=== PATIENT | female | born 1995 | race Caucasian/White ===

== ENCOUNTER 2017-06-18 07:17 | Emergency (ER) | payer BC ==
--- NOTE | 2017-06-18 07:36 | EDM.PDOC ---
ED HPI GENERAL MEDICAL PROBLEM - General Chief Complaint: Fever Stated Complaint: FEVER/COUGH Time Seen by Provider: 06/18/17 07:34 Source of Information: Reports: Patient, Family (mother) History Limitations: Reports: No Limitations - History of Present Illness INITIAL COMMENTS - FREE TEXT/NARRATIVE: 22-year-old female presents to the ED with a four-day history of fever chills bodyache and severe paroxysmal cough. Poor appetite. Symptoms are compatible with influenza. She was seen by the school nurse 2 days ago and had a negative strep screen and a negative Monospot carried out. She states the coughing is the worst and she can't stop and coughs all night long. Fever up to 103. Onset: Sudden Onset Date: 06/15/17 Duration: Day(s): Location: Reports: Chest (Paroxysmal cough for headache and body ache.), Generalized, Other (Generalized myalgia anorexia) Quality: Reports: Ache, Other (All over. Severe paroxysmal cough) Severity: Moderate Improves with: Reports: None (To severe.) Worsens with: Reports: None Context: Reports: Sick Contact (Plays on a basketball team for [employer] Denies: Activity, Exercise, Lifting, Trauma, Other Associated Symptoms: Reports: Chest Pain, Cough (From coughing so much), Fever/ Chills, Headaches, Loss of Appetite, Malaise ( severe paroxysmal cough minimally productive.), Weakness (Generalized). Denies: Confusion, Diaphoresis , Nausea/Vomiting, Rash, Seizure, Shortness of Breath, Syncope Treatments [employer]PERATOR: Reports: Other (see below) (She's been using [id number] DayQuil.) Throat Pain Score (Numeric/FACES): 2 - Related Data Allergies Allergy/AdvReac Type Severity Reaction Status Date / Time No Known Allergies Allergy Verified 06/18/17 07:29 Home Meds: Home Meds Control. 1 tab PO DAILY 06/18/17 [History] Chlorpheniramine/HYDROcodone [Tussionex Pennkinetic] 5 ml PO Q12H #60 ml [Rx] Oseltamivir [Tamiflu] 75 mg PO BID #10 cap 06/18/17 [Rx] Social & Family History - Living Situation & Occupation Living situation: Reports: Single Occupation: Student ED ROS GENERAL - Review of Systems Review Of Systems: See Below Constitutional: Reports: No Symptoms HEENT: Reports: No Symptoms Respiratory: Reports: No Symptoms Cardiovascular: Reports: No Symptoms Endocrine: Reports: No Symptoms GI/Abdominal: Reports: No Symptoms : Reports: No Symptoms Musculoskeletal: Reports: No Symptoms Skin: Reports: No Symptoms Neurological: Reports: No Symptoms Psychiatric: Reports: No Symptoms Hematologic/Lymphatic: Reports: No Symptoms Immunologic: Reports: No Symptoms ED EXAM, GENERAL - Physical Exam Exam: See Below Exam Limited By: No Limitations General Appearance: Alert, WD/WN, Other (Very warm to palpation.) Eye Exam: Bilateral Eye: Normal Inspection Ears: Normal TMs Throat/Mouth: Normal Inspection, Normal Lips, Normal Teeth, Normal Oropharynx, Other Head: Atraumatic, Normocephalic (Lips are mildly dry) Neck: Normal Inspection, Supple, Non-Tender, Full Range of Motion. No: Lymphadenopathy (L), Lymphadenopathy (R) Respiratory/Chest: No Respiratory Distress, Lungs Clear, Normal Breath Sounds, Other (Harsh paroxysmal nonproductive cough noted) Cardiovascular: Normal Peripheral Pulses, Regular Rate, Rhythm (Resting heart rate 1 18/m presumably due to fever.), No Edema, No Gallop, No Murmur, Tachycardia Peripheral Pulses: 2+: Posterior Tibial (L), Posterior Tibial (R), Dorsalis Pedis (L), Dorsalis Pedis (R) GI/Abdominal: Normal Bowel Sounds, Soft, Non-Tender, No Organomegaly, No Abnormal Bruit, No Mass, Pelvis Stable Back Exam: Normal Inspection, Full Range of Motion. No: CVA Tenderness (L), CVA Tenderness (R) Extremities: Normal Inspection, Normal Range of Motion, Non-Tender, No Pedal Edema Neurological: Alert, Oriented, CN II-XII Intact, Normal Cognition, Normal Gait Psychiatric: Normal Affect, Normal Mood Skin Exam: Warm, Dry, Intact, Normal Color, No Rash Course - Vital Signs Last Recorded V/S: Last Vital Signs Temp 38.1 C 06/18/17 07:58 Pulse 118 H 06/18/17 07:26 Resp 16 06/18/17 07:26 BP 134/91 H 06/18/17 07:26 Pulse Ox 96 06/18/17 07:26 - Orders/Labs/Meds Meds: Medications Discontinued Medications Generic Name Dose Route Start Last Admin Trade Name Freq PRN Reason Stop Dose Admin Ibuprofen 600 mg 06/18/17 07:54 06/18/17 07:58 Motrin PO 06/18/17 07:55 600 mg ONETIME ONE Administration - Radiology Interpretation Free Text/Narrative:: 22-year-old female currently going to college here in [place] presents with a 3 to four-day history of fever chills and paroxysmal cough with moderate headache and loss of appetite. Symptoms are compatible with influenza. Lungs are clear oropharynx and ears are normal. Plan influenza screen to be done. Given Motrin 600 mg per ora now for fever relief. - Re-Assessments/Exams Free Text/Narrative Re-Assessment/Exam: 06/18/17 08:26 Patient is positive for influenza type a virus. She will be placed on Tamiflu 75 mg twice a day for 5 days not so much to slow down her illness but to try and prevent her from being contagious to others that she lives in a college campus. She will continue use Motrin 6 mg every 6 hours for pain body ache and fever relief. Tussionex cough syrup 5 mils by mouth every 12 hours necessary for cough relief. Departure - Departure Time of Disposition: 08:33 Disposition: Home, Self-Care 01 Condition: Fair Clinical Impression: Influenza A - Discharge Information Prescriptions: Chlorpheniramine/HYDROcodone [Tussionex Pennkinetic] 5 ml PO Q12H #60 ml Oseltamivir [Tamiflu] 75 mg PO BID #10 cap Referrals: PCP,None [Ordering Only Provider] - Forms: ED Department Discharge, ED Return to Work/School Form Additional Instructions: Evaluation in the emergency room this morning in regards to high fever headache generalized myalgia and paroxysmal cough for 3-4 days. The symptoms are compatible with influenza infection which is running rampant through our community at present. You tested positive for influenza type a virus infection. Treatment is fever relief with Motrin 600 mg every 6 hours as needed which will relieve headache and body ache as well. Start antiviral medication Tamiflu 75 mg twice daily for the next 5 days today. Appears to break the influenza virus infection and make it less contagious to others. You are considered contagious to disrupt a week after the start of symptoms. Suggest staying out of school for at least Thursday or Thursday next week. May use Tussionex cough syrup for 5 mils every 12 hours as necessary for cough relief. Takes a good hour to work so plan on taking a good hour before bedtime.
[2017-06-18] MEDS ORDERED: Ibuprofen 600 MG Tab PO ONE (07:54)
== END 2017-06-18 08:43 | disposition home or self-care (01) ==
LOC: JD.ED 07:17
DX: J10.1 Influenza due to other identified influenza virus with other respiratory manifestations (principal); Z79.899 Other long term (current) drug therapy
CPT/HCPCS: 87804; 99283; A9270

== ENCOUNTER 2019-02-03 07:05 | Emergency (ER) | payer BC ==
--- NOTE | 2019-02-03 07:54 | EDM.PDOC ---
ED HPI GENERAL MEDICAL PROBLEM - General Chief Complaint: General Stated Complaint: FEVER,COUGH ANDF NAUSEA Time Seen by Provider: 02/03/19 07:30 Source of Information: Reports: Patient History Limitations: Reports: No Limitations - History of Present Illness INITIAL COMMENTS - FREE TEXT/NARRATIVE: The patient presents with a cough, congestion, sore throat, chills and fever. This has been going on for a few days. She has some nausea with it. She has no chest pain, shortness of breath or abdominal pain. 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 Onset: Gradual Duration: Day(s): Location: Reports: Other (Throat) Quality: Reports: Sharp Severity: Mild Improves with: Reports: None Worsens with: Reports: None Associated Symptoms: Reports: Cough, Fever/Chills, Nausea/Vomiting. Denies: Chest Pain, Headaches, Shortness of Breath Throat Pain Score (Numeric/FACES): 3 - Related Data Allergies Allergy/AdvReac Type Severity Reaction Status Date / Time No Known Allergies Allergy Verified 06/18/17 07:29 Home Meds: Home Meds Control. 1 tab PO DAILY 06/18/17 [History] Chlorpheniramine/HYDROcodone [Tussionex Pennkinetic] 5 ml PO Q12H #60 ml [Rx] Oseltamivir [Tamiflu] 75 mg PO BID #10 cap 06/18/17 [Rx] Past Medical History - Past Health History Medical/Surgical History: Denies Medical/Surgical History - Past Surgical History HEENT Surgical History: Reports: Oral Surgery Social & Family History - Family History Family Medical History: Noncontributory - Tobacco Use Smoking Status *Q: Never Smoker - Caffeine Use Caffeine Use: Reports: None - Recreational Drug Use Recreational Drug Use: No - Living Situation & Occupation Living situation: Reports: Single Occupation: Student ED ROS GENERAL - Review of Systems Review Of Systems: See Below Constitutional: Reports: Fever, Chills HEENT: Reports: Throat Pain Respiratory: Reports: Cough. Denies: Shortness of Breath Cardiovascular: Reports: No Symptoms Endocrine: Reports: No Symptoms GI/Abdominal: Reports: Nausea. Denies: Abdominal Pain, Vomiting : Reports: No Symptoms Musculoskeletal: Reports: No Symptoms ED EXAM, GENERAL - Physical Exam Exam: See Below Exam Limited By: No Limitations General Appearance: Alert, No Apparent Distress Ears: Normal External Exam, Normal Canal, Normal TMs Nose: Normal Inspection Throat/Mouth: Other (Mild pharyngeal erythema) Head: Atraumatic, Normocephalic Neck: Normal Inspection, Supple, Non-Tender Respiratory/Chest: No Respiratory Distress, Lungs Clear, Normal Breath Sounds Cardiovascular: Regular Rate, Rhythm, No Edema, No Murmur GI/Abdominal: Soft, Non-Tender, No Organomegaly, No Mass Extremities: Normal Inspection Neurological: Alert, Oriented, No Motor/Sensory Deficits Course - Vital Signs Last Recorded V/S: Last Vital Signs Temp 98.8 F 02/03/19 07:26 Pulse 99 02/03/19 07:26 Resp 16 02/03/19 07:26 BP 140/92 H 02/03/19 07:26 Pulse Ox 100 02/03/19 07:26 - Re-Assessments/Exams Free Text/Narrative Re-Assessment/Exam: 02/03/19 07:53 I have ordered an influenza swab. 02/03/19 08:11 The influenza is negative. She has a viral URI. I will discharge her home. Departure - Departure Time of Disposition: 08:15 Disposition: Home, Self-Care 01 Condition: Good Clinical Impression: Viral URI - Discharge Information *PRESCRIPTION DRUG MONITORING PROGRAM REVIEWED*: No *COPY OF PRESCRIPTION DRUG MONITORING REPORT IN PATIENT QUE: No Referrals: PCP,None [Primary Care Provider] - Forms: ED Department Discharge, ED Return to Work/School Form Additional Instructions: Drink plenty of fluids. Take motrin or tylenol for any fever. You can try over the counter cold preparations such as mucinex and nyquill. Please return if you are worse.
== END 2019-02-03 08:18 | disposition home or self-care (01) ==
LOC: JD.ED 07:05
DX: J06.9 Acute upper respiratory infection, unspecified (principal)
CPT/HCPCS: 87804; 99281; 99283

== ENCOUNTER 2019-04-30 19:52 | Emergency (ER) | payer BC ==
--- NOTE | 2019-04-30 20:01 | EDM.PDOC ---
ED HPI GENERAL MEDICAL PROBLEM - General Chief Complaint: Upper Extremity Injury/Pain Stated Complaint: INJURED PINKY FINGER ON RIGHT HAND Time Seen by Provider: 04/30/19 20:00 Source of Information: Reports: Patient History Limitations: Reports: No Limitations - History of Present Illness INITIAL COMMENTS - FREE TEXT/NARRATIVE: 23-year-old female presents the ED for evaluation of acute injury to her left fifth finger. She states she jammed it while playing basketball and was struck by the basketball directly on the end of her right fifth finger. Of note she is right-hand dominant. Patient is unable to flex or extend the distal aspect of her finger and has obvious deformity at the DIP joint. She denies any other injuries. She denies any possibility of . Onset: Today Onset Date: 04/30/19 Onset Time: 19:35 Duration: Minutes: Location: Reports: Upper Extremity, Right (Injury to the right fifth finger) Quality: Reports: Ache, Throbbing Severity: Moderate Improves with: Reports: Rest Worsens with: Reports: Movement Context: Reports: Exercise (Jammed up the right fifth finger playing basketball. ). Denies: Activity Associated Symptoms: Reports: No Other Symptoms Treatments CONFIGURATOR: Reports: Other (see below) (None.) - Related Data Allergies Allergy/AdvReac Type Severity Reaction Status Date / Time No Known Allergies Allergy Verified 06/18/17 07:29 Home Meds: Home Meds . [No Known Home Meds] 02/03/19 [History] Past Medical History - Past Health History Medical/Surgical History: Denies Medical/Surgical History - Past Surgical History HEENT Surgical History: Reports: Oral Surgery Social & Family History - Family History Family Medical History: Noncontributory - Caffeine Use Caffeine Use: Reports: None - Living Situation & Occupation Living situation: Reports: Single Occupation: Student Review of Systems - Review of Systems Review Of Systems: See Below Constitutional: Reports: No Symptoms Eyes: Reports: No Symptoms Ears: Reports: No Symptoms Nose: Reports: No Symptoms Mouth/Throat: Reports: No Symptoms Respiratory: Reports: No Symptoms Cardiovascular: Reports: No Symptoms GI/Abdominal: Reports: No Symptoms Genitourinary: Reports: No Symptoms Musculoskeletal: Reports: No Symptoms Skin: Reports: No Symptoms Neurological: Reports: No Symptoms Psychiatric: Reports: No Symptoms ED EXAM, GENERAL - Physical Exam Exam: See Below Exam Limited By: No Limitations General Appearance: Alert, WD/WN, No Apparent Distress, Other (Vital signs are stable.) Extremities: Other (Termination was limited to the right hand. She has an acute injury to the distal aspect of her right fifth digit with an obvious anterior dislocation of the distal phalanx on the middle phalanx. Unable to flex or extend the distal aspect of the finger. There is mild associated swelling at the DIP joint.) Neurological: Alert, Oriented, CN II-XII Intact, Normal Cognition Psychiatric: Normal Affect, Normal Mood Skin Exam: Warm, Dry, Intact, Normal Color, No Rash ED TRAUMA EXTREMITY PROCEDURES - Joint Reduction Site: Finger (R) (Dislocation at the DIP joint anteriorly of the right fifth finger) Sedation: Other Pre-Procedure NV Status: Normal Post-Procedure NV Status: Normal Technique: Traction/Counter Traction (Manual traction) Number of Attempts: 1 Post-Reduction Imaging: Completely Reduced, No Fracture Seen Joint Reduction Complications: No Course - Vital Signs Last Recorded V/S: Last Vital Signs Temp 36.6 C 04/30/19 20:13 Pulse 108 H 04/30/19 20:13 Resp 20 04/30/19 20:13 BP 144/112 H 04/30/19 20:13 Pulse Ox 100 04/30/19 20:13 - Orders/Labs/Meds Orders: Active Orders 24 hr Category Date Time Status Fingers Fifth Digit Rt F9 [CR] Stat Exams 04/30/19 20:11 Ordered Fingers Fifth Digit Rt F9 [CR] Stat Exams 04/30/19 20:31 Ordered Meds: Medications Discontinued Medications Generic Name Dose Route Start Last Admin Trade Name Freq PRN Reason Stop Dose Admin Ibuprofen 600 mg 04/30/19 20:33 04/30/19 20:39 Motrin PO 04/30/19 20:34 600 mg ONETIME ONE Administration - Radiology Interpretation Free Text/Narrative:: 23-year-old female presents to the ED with an acute injury to the distal aspect of her right fifth finger playing basketball. She believes the basket struck her right on the end of the finger. Examination shows an anterior dislocation or volar dislocation of the distal phalanx on the middle phalanx. Plan x-rays to be obtained. X-rays will be repeated once reduction is completed - Re-Assessments/Exams Free Text/Narrative Re-Assessment/Exam: 04/30/19 20:30 x-ray of the right fifth finger confirms dislocation of the DIP joint. the dislocation was easily reduced with manual traction. 04/30/19 20:32 Post reduction films reveal return to anatomical position. No fractures identified. Plan: Power tape the 5th to the 4th finger for the next two weeks. Motrin 600mg every 6hrs as need for pain relief. Departure - Departure Time of Disposition: 20:38 Disposition: Home, Self-Care 01 Condition: Fair Clinical Impression: Closed dislocation of phalanx of hand Qualifiers: Encounter type: initial encounter Qualified Code(s): S63.259A - Unspecified dislocation of unspecified finger, initial encounter - Discharge Information *PRESCRIPTION DRUG MONITORING PROGRAM REVIEWED*: Not Applicable *COPY OF PRESCRIPTION DRUG MONITORING REPORT IN PATIENT QUE: Not Applicable Referrals: PCP,None [Primary Care Provider] - Forms: ED Department Discharge Additional Instructions: Evaluation the emergency room tonight in regards to acute injury to the right fifth distal finger while playing basketball. There is an obvious dislocation of the distal phalanx on the middle phalanx volarly or towards the palmar aspect of your hand. X-rays revealed the dislocation but no fractures were identified. The dislocation was easily reduced in the emergency department and postreduction x-rays reveal no fractures. There will be torn ligaments of the joint at the DIP joint. Treatment is to power tape the right fifth and fourth finger together for the next 2 weeks. After this may start to regain range of motion. Back swelling of the joint for up to 3 months before returning to normal shape and size. Faint vascular after 2 weeks then power tape or tape the joint aggressively with tape to prevent hyperflexion injury again in the near future. Motrin 600 mg every 6 hours to reduce pain and inflammation. Plan ice to the area one half hour out of every 4 hours today and tomorrow to reduce swelling. Sepsis Event Note - Focused Exam Vital Signs: Vital Signs Temp Pulse Resp BP Pulse Ox 04/30/19 20:13 36.6 C 108 H 20 144/112 H 100 Date Exam was Performed: 04/30/19 Time Exam was Performed: 20:41 - My Orders Last 24 Hours: My Active Orders 04/30/19 20:11 Fingers Fifth Digit Rt F9 [CR] Stat 04/30/19 20:31 Fingers Fifth Digit Rt F9 [CR] Stat - Assessment/Plan Last 24 Hours: My Active Orders 04/30/19 20:11 Fingers Fifth Digit Rt F9 [CR] Stat 04/30/19 20:31 Fingers Fifth Digit Rt F9 [CR] Stat
[2019-04-30] MEDS ORDERED: Ibuprofen 600 MG Tab PO ONE (20:33)
--- NOTE | 2019-05-02 07:12 | CR ---
Right fifth finger: Two views of the right fifth finger were obtained. Comparison: No previous study. Partial dislocation is identified within the DIP joint on one view which disappears on the second view. No fracture or other abnormality is seen. Impression: 1. Dislocation as noted above. Diagnostic code #2 This report was dictated in [place] Standard Time
== END 2019-04-30 20:45 | disposition home or self-care (01) ==
LOC: JD.ED 19:52
DX: S63.296A Dislocation of distal interphalangeal joint of right little finger, initial encounter (principal); W21.05XA Struck by basketball, initial encounter; Y93.67 Activity, basketball
CPT/HCPCS: 26770; 73140; 99283; A9270; 26670; 99282

== ENCOUNTER 2020-03-11 19:50 | Emergency (ER) | payer BC ==
[2020-03-11] MEDS ORDERED: Ketorolac 60 MG/2 ML SDV IM ONE ×2 (20:57→21:45)
[2020-03-11] MEDS ORDERED: Acetaminophen 325 MG Tab PO ONE (20:59)
--- NOTE | 2020-03-11 21:50 | EDM.PDOC ---
ED HPI GENERAL MEDICAL PROBLEM - General Chief Complaint: Back Pain or Injury Stated Complaint: LOW BACK PAIN Time Seen by Provider: 03/11/20 19:58 Source of Information: Reports: Patient, RN Notes Reviewed History Limitations: Reports: No Limitations - History of Present Illness INITIAL COMMENTS - FREE TEXT/NARRATIVE: Patient is a 24-year-old female presenting to the emergency department with complaints of generalized low back pain. Symptoms started this morning. She has had no falls or known injuries. Denies any heavy lifting. She recently drove back from [place] today. States she had difficulty sitting for the drive which was about 3 and half hours. She verbalized that she is undergoing work-up for high blood pressure. She had been home in [place] to have some ultrasounds and other tests done on her kidneys to look at them as a possible cause for high blood pressure. She has not taken anything for pain. She denies any urinary frequency or dysuria. Treatments FLAGGER: Reports: Other (see below) Other Treatments FLAGGER: none Lower Back Pain Score (Numeric/FACES): 8 - Related Data Allergies Allergy/AdvReac Type Severity Reaction Status Date / Time No Known Allergies Allergy Verified 06/18/17 07:29 Home Meds: Home Meds Naproxen [Naprosyn] 500 mg PO Q12HR 5 Days #10 tab 03/11/20 [Rx] Spironolactone [Aldactone] 25 mg PO DAILY 03/11/20 [History] amLODIPine [Norvasc] 5 mg PO DAILY 03/11/20 [History] Past Medical History - Past Health History Medical/Surgical History: Denies Medical/Surgical History Cardiovascular History: Reports: Hypertension - Past Surgical History HEENT Surgical History: Reports: Oral Surgery Social & Family History - Family History Family Medical History: Noncontributory - Tobacco Use Tobacco Use Status *Q: Never Tobacco User - Caffeine Use Caffeine Use: Reports: Coffee - Recreational Drug Use Recreational Drug Use: No - Living Situation & Occupation Living situation: Reports: Single Occupation: Student ED ROS GENERAL - Review of Systems Review Of Systems: Comprehensive ROS is negative, except as noted in HPI. ED EXAM,LOWER BACK PAIN/INJURY - Physical Exam Exam: See Below General Appearance: Alert, WD/WN, No Apparent Distress Respiratory/Chest: No Respiratory Distress, Lungs Clear, Normal Breath Sounds, No Accessory Muscle Use, Chest Non-Tender Cardiovascular: Normal Peripheral Pulses, Regular Rate, Rhythm, No Edema, No Gallop, No JVD, No Murmur, No Rub GI/Abdominal: Normal Bowel Sounds, Soft, Non-Tender, No Organomegaly, No Distention, No Abnormal Bruit, No Mass Back Exam: Normal Inspection, Full Range of Motion, Paraspinal Tenderness (Mild bilateral low and mid back.). No: Vertebral Tenderness Neurological: Alert, Normal Mood/Affect, Normal Dorsiflexion, CN II-XII Intact, Normal Plantar Flexion, Normal Gait, Normal Reflexes, No Motor/Sensory Deficits, Oriented x 3 Psychiatric: Normal Affect, Normal Mood Skin Exam: Warm, Dry, Intact, Normal Color, No Rash Course - Vital Signs Last Recorded V/S: Last Vital Signs Temp 100.9 F H 03/11/20 20:04 Pulse 112 H 03/11/20 20:04 Resp 20 03/11/20 20:04 BP 138/96 H 03/11/20 20:04 Pulse Ox 97 03/11/20 20:04 - Orders/Labs/Meds Orders: Active Orders 24 hr Category Date Time Status Lumbar Spine 2 or 3V [CR] Stat Exams 03/11/20 20:56 Taken Labs: Laboratory Tests 03/11/20 03/11/20 03/11/20 Range/Units 20:35 21:10 21:10 WBC 5.67 (3.98-10.04) K/mm3 RBC 4.76 (3.98-5.22) M/mm3 Hgb 14.1 (11.2-15.7) gm/dl Hct 41.1 (34.1-44.9) % MCV 86.3 (79.4-94.8) fl MCH 29.6 (25.6-32.2) pg MCHC 34.3 (32.2-35.5) g/dl RDW Std Deviation 37.2 (36.4-46.3) fL Plt Count 320 (182-369) K/mm3 MPV 9.8 (9.4-12.3) fl Neut % (Auto) 70.1 (34.0-71.1) % Lymph % (Auto) 11.3 L (19.3-51.7) % [place] % (Auto) 17.1 H (4.7-12.5) % Eos % (Auto) 0.4 L (0.7-5.8) Baso % (Auto) 1.1 (0.1-1.2) % Neut # (Auto) 3.98 (1.56-6.13) K/mm3 Lymph # (Auto) 0.64 L (1.18-3.74) K/mm3 [place] # (Auto) 0.97 H (0.24-0.36) K/mm3 Eos # (Auto) 0.02 L (0.04-0.36) K/mm3 Baso # (Auto) 0.06 (0.01-0.08) K/mm3 Sodium 136 (136-145) mEq/L Potassium 3.6 (3.5-5.1) mEq/L Chloride 100 (98-107) mEq/L Carbon Dioxide 21 (21-32) mEq/L Anion Gap 18.6 H (5-15) BUN 11 (7-18) mg/dL Creatinine 1.0 (0.55-1.02) mg/dL Est Cr Clr Drug Dosing 85.30 mL/min Estimated GFR (MDRD) > 60 (>60) mL/min BUN/Creatinine Ratio 11.0 L (14-18) Glucose 93 (74-106) mg/dL Calcium 9.5 (8.5-10.1) mg/dL Total Bilirubin 0.4 (0.2-1.0) mg/dL AST 17 (15-37) U/L ALT 21 (14-59) U/L Alkaline Phosphatase 77 (46-116) U/L Total Protein 8.4 H (6.4-8.2) g/dl Albumin 4.4 (3.4-5.0) g/dl Globulin 4.0 gm/dL Albumin/Globulin Ratio 1.1 (1-2) Urine Color Yellow (Yellow) Urine Appearance Clear (Clear) Urine pH 6.0 (5.0-8.0) Ur Specific [place] > or = 1.030 (1.005-1.030) Urine Protein Trace H (Negative) Urine Glucose (UA) Negative (Negative) Urine Ketones 1+ H (Negative) Urine Occult Blood Negative (Negative) Urine Nitrite Negative (Negative) Urine Bilirubin Negative (Negative) Urine Urobilinogen 0.2 (0.2-1.0) Ur Leukocyte Esterase Negative (Negative) Urine RBC 0-5 (0-5) /hpf Urine WBC 0-5 (0-5) /hpf Ur Squamous Epith Cells 0-5 (0-5) /hpf Urine Bacteria Few (FEW) /hpf Urine Mucus Few (FEW) /hpf Meds: Medications Discontinued Medications Generic Name Dose Route Start Last Admin Trade Name Benigno PRN Reason Stop Dose Admin Acetaminophen 975 mg 03/11/20 20:59 03/11/20 21:27 Tylenol PO 03/11/20 21:00 975 mg NOW ONE Administration Ketorolac Tromethamine 60 mg 03/11/20 20:57 03/11/20 21:52 Toradol IM 03/11/20 20:58 Not Given ONETIME ONE Ketorolac Tromethamine 60 mg 03/11/20 21:45 03/11/20 22:09 Toradol IM 03/11/20 21:46 60 mg ONETIME ONE Administration - Re-Assessments/Exams Free Text/Narrative Re-Assessment/Exam: Patient is a 24-year-old female presenting to the emergency department with complaints of generalized low back pain. Denies any known injury. She is having testing done on her kidneys to look at them as a possible cause for recently increased blood pressure. She denies any dysuria or frequency. Urinalysis shows no signs of infection. I will give her Tylenol 975 mg p.o. Have ordered CBC and CMP. If her kidney function comes back normal, she will get a shot of Toradol. Of also ordered a lumbar x-ray. 03/11/20 22:45 X-ray of the lumbar spine shows scoliosis but no other abnormalities. Patient's hematology is grossly unremarkable. Symptoms have improved with medications given. I will write a prescription for Naprosyn. Recommend heat to the back. Follow-up in the clinic if symptoms do not improve. Discharge instructions as documented. Departure - Departure Time of Disposition: 22:48 Disposition: Home, Self-Care 01 Condition: Good Clinical Impression: Back pain Qualifiers: Back pain location: low back pain Chronicity: acute Back pain laterality: bilateral Sciatica presence: without sciatica Qualified Code(s): M54.5 - Low back pain - Discharge Information Prescriptions: Naproxen [Naprosyn] 500 mg PO Q12HR 5 Days #10 tab Instructions: Acute Back Pain, Adult Referrals: PCP,Not In Area [Primary Care Provider] - Forms: ED Department Discharge Additional Instructions: You were seen in the emergency department today for acute back pain. Blood work and urinalysis were completed and found to be normal. X-ray of your low back shows scoliosis but no other abnormalities. While in the ER, you received a dose of Tylenol as well as an injection of Toradol which did improve your symptoms. A prescription for Naprosyn has been sent to [facility]. Take this medication as prescribed. Recommend applying heat intermittently as well. If you are still having significant discomfort after the Naprosyn course, recommend follow-up in the clinic. Return to ER for worsening symptoms. Sepsis Event Note (ED) - Evaluation Sepsis Screening Result: No Definite Risk - Focused Exam Vital Signs: Vital Signs Temp Pulse Resp BP Pulse Ox 03/11/20 20:04 100.9 F H 112 H 20 138/96 H 97 - My Orders Last 24 Hours: My Active Orders 03/11/20 20:56 Lumbar Spine 2 or 3V [CR] Stat - Assessment/Plan Last 24 Hours: My Active Orders 03/11/20 20:56 Lumbar Spine 2 or 3V [CR] Stat
--- NOTE | 2020-03-12 09:04 | CR ---
PROCEDURE INFORMATION: Exam: XR Lumbosacral Spine, 2 or 3 Views Exam date and time: 03/11/2020 10:35 PM Age: 24 years old Clinical indication: Low back pain; Patient HX: HX: Scoliosis, nki pain in lower back onset this morning TECHNIQUE: Imaging protocol: XR of the lumbosacral spine, 2 or 3 views. COMPARISON: No relevant prior studies available. FINDINGS: Bones/joints: There is a left lumbar scoliosis in the 20 degree range. Near anatomic alignment. There are no significant degenerative changes present. There is no evidence of acute fracture. Pedicles intact. Soft tissues: No acute soft tissue abnormalities are identified. IMPRESSION: 1. Left lumbar scoliosis. 2. No acute findings. Thank you for allowing us to participate in the care of your patient. Dictated and Authenticated by: Giovanny Somers MD 03/11/2020 11:48 PM Central Time ([place] & [place]) [facility]
== END 2020-03-11 22:55 | disposition home or self-care (01) ==
LOC: JD.ED 19:50 → SUPCPDRO 19:50 → JD.ED 22:55
DX: M54.5 Low back pain (principal); I10 Essential (primary) hypertension; Z79.899 Other long term (current) drug therapy
CPT/HCPCS: 36415; 72100; 80053; 81001; 85025; 96372; 99283; A9270; J1885

== ENCOUNTER 2020-08-15 15:25 | Emergency (ER) | payer BC ==
[2020-08-15] MEDS ORDERED: Sodium Chloride 0.9% 1,000 ML IV ONE (15:53)
[2020-08-15] MEDS ORDERED: Sodium Chloride 0.9% 10 ML Syringe FLUSH PRN (15:53)
[2020-08-15] MEDS ORDERED: diphenhydrAMINE 50 MG/ML SDV IVPUSH ONE (15:53)
[2020-08-15] MEDS ORDERED: Ketorolac 30 MG/ML SDV IVPUSH ONE (15:53)
[2020-08-15] MEDS ORDERED: Metoclopramide 10 MG/2 ML SDV IVPUSH ONE (15:53)
--- NOTE | 2020-08-15 15:59 | EDM.PDOC ---
ED HPI GENERAL MEDICAL PROBLEM - General Chief Complaint: Headache Stated Complaint: HEADACH/HIGH BP-CAME OVER FROM [place] Time Seen by Provider: 08/15/20 15:41 Source of Information: Reports: Patient, RN Notes Reviewed History Limitations: Reports: No Limitations - History of Present Illness INITIAL COMMENTS - FREE TEXT/NARRATIVE: Patient is a 25-year-old female who presents to the ER for the evaluation of a headache. Patient notes that she got the [employer]van COVID-19 vaccine on August 01, 2020. She notes that since then, she has been having on and off headache, that seems to develop in the back of her head, and then settled behind her eyes. She states that she got quite nauseous when the headaches did hit the past few times, so much that she had to stop her car as it made her want to vomit. She has had a headache on 06 August, and the august, and again today. She is aware of the news regarding the Stevan [employer] Stevan vaccine, and the blood clot formation, and she went to the walk-in clinic for evaluation today at the behest of her primary care provider in [place], but they directed her to the ER for CT as they stated they did not have any staff for imaging for today's purposes. Patient notes she has a history of hypertension, but normally has diastolic hypertension. Patient also states she used to get headaches from time to time as well, but she is not had headaches like this in some time. She states that the headaches when they were present, seem to last all day and sleeping with the only thing that really help them get better. She has not taken any medications to try to relieve her headache. She denies any fevers or chills, cough or shortness of breath, nausea/vomiting/diarrhea. Headache Pain Score (Numeric/FACES): 4 - Related Data Allergies Allergy/AdvReac Type Severity Reaction Status Date / Time No Known Allergies Allergy Verified 08/15/20 15:45 Home Meds: Home Meds Spironolactone [Aldactone] 25 mg PO DAILY 03/11/20 [History] Past Medical History Cardiovascular History: Reports: Hypertension (diastolic HTN) Genitourinary History: Reports: Other (See Below) Other Genitourinary History: Currently being seen by Nephrology - no diagnosis - Past Surgical History HEENT Surgical History: Reports: Oral Surgery Social & Family History - Family History Family Medical History: No Pertinent Family History - Tobacco Use Tobacco Use Status *Q: Never Tobacco User Second Hand Smoke Exposure: No - Caffeine Use Caffeine Use: Reports: Coffee - Recreational Drug Use Recreational Drug Use: No - Living Situation & Occupation Living situation: Reports: Single Occupation: Student ED ROS GENERAL - Review of Systems Review Of Systems: Comprehensive ROS is negative, except as noted in HPI. - Physical Exam Exam: See Below Exam Limited By: No Limitations General Appearance: Alert, WD/WN, No Apparent Distress Eye Exam: Bilateral Eye: EOMI, Normal Inspection, PERRL Respiratory/Chest: No Respiratory Distress, Lungs Clear, Normal Breath Sounds, No Accessory Muscle Use, Chest Non-Tender Cardiovascular: Normal Peripheral Pulses, Regular Rate, Rhythm, No Edema GI/Abdominal: Normal Bowel Sounds, Soft, Non-Tender, No Distention, No Mass Neuro Exam (Abbreviated): Alert, Oriented, Normal Cognition, No Motor/Sensory Deficits Extremities: Normal Inspection, Normal Capillary Refill Psychiatric: Normal Affect, Normal Mood Skin Exam: Warm, Dry, Intact, Normal Color, No Rash Course - Vital Signs Last Recorded V/S: Last Vital Signs Temp 96.8 F L 08/15/20 15:38 Pulse 88 08/15/20 15:38 Resp 16 08/15/20 15:38 BP 151/111 H 08/15/20 15:38 Pulse Ox 100 08/15/20 15:38 - Orders/Labs/Meds Orders: Active Orders 24 hr Category Date Time Status Peripheral IV Care [RC] . DIRECTED Care 08/15/20 15:53 Active Sodium Chloride 0.9% [Saline Flush] Med 08/15/20 15:53 Active 10 ml FLUSH ASDIRECTED PRN Peripheral IV Insertion Adult [OM.PC] Routine Oth 08/15/20 15:53 Ordered Medication Orders Sodium Chloride (Sodium Chloride 0.9% 10 Ml Syringe) 10 ml FLUSH ASDIRECTED PRN PRN Reason: Keep Vein Open Last Admin: 08/15/20 16:09 Dose: 10 ml Documented by: RON Labs: Laboratory Tests 08/15/20 08/15/20 Range/Units 16:15 16:15 WBC 6.31 (3.98-10.04) K/mm3 RBC 4.61 (3.98-5.22) M/mm3 Hgb 13.5 (11.2-15.7) gm/dl Hct 40.6 (34.1-44.9) % MCV 88.1 (79.4-94.8) fl MCH 29.3 (25.6-32.2) pg MCHC 33.3 (32.2-35.5) g/dl RDW Std Deviation 39.2 (36.4-46.3) fL Plt Count 350 (182-369) K/mm3 MPV 10.2 (9.4-12.3) fl Neut % (Auto) 48.1 (34.0-71.1) % Lymph % (Auto) 38.4 (19.3-51.7) % [place] % (Auto) 10.3 (4.7-12.5) % Eos % (Auto) 1.3 (0.7-5.8) Baso % (Auto) 1.7 H (0.1-1.2) % Neut # (Auto) 3.04 (1.56-6.13) K/mm3 Lymph # (Auto) 2.42 (1.18-3.74) K/mm3 [place] # (Auto) 0.65 H (0.24-0.36) K/mm3 Eos # (Auto) 0.08 (0.04-0.36) K/mm3 Baso # (Auto) 0.11 H (0.01-0.08) K/mm3 Sodium 143 (136-145) mEq/L Potassium 3.5 (3.5-5.1) mEq/L Chloride 104 (98-107) mEq/L Carbon Dioxide 27 (21-32) mEq/L Anion Gap 15.5 H (5-15) BUN 16 (7-18) mg/dL Creatinine 0.9 (0.55-1.02) mg/dL Est Cr Clr Drug Dosing 92.45 mL/min Estimated GFR (MDRD) > 60 (>60) mL/min BUN/Creatinine Ratio 17.8 (14-18) Glucose 103 (74-106) mg/dL Calcium 9.5 (8.5-10.1) mg/dL Total Bilirubin 0.4 (0.2-1.0) mg/dL AST 15 (15-37) U/L ALT 22 (14-59) U/L Alkaline Phosphatase 63 (46-116) U/L Total Protein 8.2 (6.4-8.2) g/dl Albumin 4.2 (3.4-5.0) g/dl Globulin 4.0 gm/dL Albumin/Globulin Ratio 1.1 (1-2) Meds: Medications Generic Name Dose Route Start Last Admin Trade Name Benigno PRN Reason Stop Dose Admin Sodium Chloride 10 ml 08/15/20 15:53 08/15/20 16:09 Sodium Chloride 0.9% 10 Ml Syringe FLUSH 10 ml ASDIRECTED PRN Administration Keep Vein Open Discontinued Medications Generic Name Dose Route Start Last Admin Trade Name Benigno PRN Reason Stop Dose Admin Diphenhydramine HCl 25 mg 08/15/20 15:53 08/15/20 16:09 Diphenhydramine 50 Mg/Ml Sdv IVPUSH 08/15/20 15:54 25 mg ONETIME ONE Administration Sodium Chloride 1,000 mls @ 999 mls/hr 08/15/20 15:53 08/15/20 16:08 Normal Saline IV 08/15/20 16:53 999 mls/hr ASDIRECTED ONE Administration Ketorolac Tromethamine 30 mg 08/15/20 15:53 08/15/20 16:08 Ketorolac 30 Mg/Ml Sdv IVPUSH 08/15/20 15:54 30 mg ONETIME ONE Administration Metoclopramide HCl 10 mg 08/15/20 15:53 08/15/20 16:09 Metoclopramide 10 Mg/2 Ml Sdv IVPUSH 08/15/20 15:54 10 mg ONETIME ONE Administration - Re-Assessments/Exams Free Text/Narrative Re-Assessment/Exam: 08/15/20 15:58 Patient presents to the ER for her headache. Due to her recent Stevan [employer] Stevan vaccine, I did go over risks and benefits of performing the CT versus not performing CT, patient would prefer to go ahead with the CT for evaluation due to the developing news regarding the [employer] Stevan vaccine. Will also get basic labs, see if there is some sort of metabolic issue that could be causing her headaches. We will give her some meds for her headache, patient verbalized understanding of this plan. 08/15/20 17:08 Patient's labs are unremarkable, head CT demonstrated ventricles that are slightly dilated, which could be incidental but radiology is recommending brain MRI to make sure there are no areas of edema around the ventricles. I will place an outpatient MRI order for this and have x-ray follow-up with her as soon as possible for further imaging. Patient's primary care provider is in [place] so I will have her try to follow-up with one of our midlevel providers hopefully on Thursday if she can get her MRI done tomorrow. There may be some openings for the patient to be able to have this done tomorrow however this is up to MRI and radiology. Departure - Departure Time of Disposition: 17:09 Disposition: Home, Self-Care 01 Condition: Good Clinical Impression: Abnormal head CT Headache Qualifiers: Headache type: unspecified Headache chronicity pattern: acute headache Intractability: not intractable Qualified Code(s): R51.9 - Headache, unspecified - Discharge Information *PRESCRIPTION DRUG MONITORING PROGRAM REVIEWED*: No *COPY OF PRESCRIPTION DRUG MONITORING REPORT IN PATIENT QUE: No Instructions: General Headache Without Cause, [id number] Referrals: Isaac Magallanes SUEDING AND BUFFING MACHINE OPERATOR [Nurse Practitioner] - 3 Days (follow up for MRI results. MRI is still pending; hope to have scheduled thu AM or Thursday AM) Forms: ED Department Discharge Additional Instructions: You were evaluated in this ER today for your headache. Laboratory evaluation is essentially unremarkable, your head CT showed some slight dilation of the spaces in your brain called the ventricles, this is most likely an incidental findings, but our radiologist is suggesting we go forward with a brain MRI to make sure that there were no other abnormalities regarding the ventricles. An outpatient order has been placed for you for a brain MRI, our x-ray staff will call you to schedule this appointment, I am hoping either early Thursday morning, or possibly Thursday. Since you do not have a primary care provider in this area, I would like you to follow-up with one of our providers so you can get the quickest results possible. Please call our clinic at [phone], tomorrow and request an appointment for either late Thursday afternoon, or Thursday afternoon, depending on when your MRI can be scheduled. It does not really matter who you see, this is more just so that you can get the MRI results. You were given some IV medications and fluids in the ER, and this seemed to help relieve most of your symptoms. Please go home, rest, and hoping that the headaches will get better with time, and these are just some lingering side effects of the vaccine. Do not hesitate to return to the ER at any time if your symptoms should change or worsen. Sepsis Event Note (ED) - Evaluation Sepsis Screening Result: No Definite Risk - Focused Exam Vital Signs: Vital Signs Temp Pulse Resp BP Pulse Ox 08/15/20 15:38 96.8 F L 88 16 151/111 H 100 - My Orders Last 24 Hours: My Active Orders 08/15/20 15:53 Peripheral IV Care [RC] . DIRECTED Sodium Chloride 0.9% [Saline Flush] 10 ml FLUSH ASDIRECTED PRN Peripheral IV Insertion Adult [OM.PC] Routine - Assessment/Plan Last 24 Hours: My Active Orders 08/15/20 15:53 Peripheral IV Care [RC] . DIRECTED Sodium Chloride 0.9% [Saline Flush] 10 ml FLUSH ASDIRECTED PRN Peripheral IV Insertion Adult [OM.PC] Routine
--- NOTE | 2020-08-15 16:22 | CT ---
Head CT Technique: Multiple axial sections through the brain were obtained. Intravenous contrast was not utilized. Reconstructed coronal and sagittal images were obtained. Findings: Ventricles are slightly dilated. Sulci over the convexities are within normal limits. No abnormal parenchymal densities are seen. No evidence of intracranial hemorrhage. No midline shift or mass-effect is seen. Bone window settings were reviewed. Visualized mastoid sinuses and paranasal sinuses shows nothing acute. No acute calvarial abnormality is appreciated. Impression: 1. Ventricles are slightly dilated. This is most likely incidental. Consider brain MRI to make sure there are no areas of edema around the ventricles. 2. Other portions of the noncontrast head CT study are within normal limits. Diagnostic code #3
== END 2020-08-15 17:30 | disposition home or self-care (01) ==
LOC: JD.ED 15:25
DX: R51.9 Headache, unspecified (principal); R94.02 Abnormal brain scan; I10 Essential (primary) hypertension
CPT/HCPCS: 36415; 70450; 80053; 85025; 96374; 96375; 99284; J1200; J1885; J2765; J7030